=== PATIENT | female | born 1980 | race African-American/Black ===

== ENCOUNTER 2018-03-24 15:43 | Emergency (ER) | payer OTHER ==
--- NOTE | 2018-03-24 15:47 | PDOC ---
Rapid Medical Evaluation Time Seen by Provider: 03/24/18 15:45 Medical Evaluation: Allergies Allergy/AdvReac Type Severity Reaction Status Date / Time No Known Allergies Allergy Verified 03/24/18 15:44 03/24/18 15:45 I have performed a brief in-person evaluation of the patient. The patient presents with a chief complaint of : sorethroat x 4 days on and off. Reports she lost her voice, and has pain with swallowing Took claritin multisymptoms this am Pertinent physical exam findings. HEENT: right tonsils erythematous, no exudate, I have ordered the following throat culture This patient will proceed to the ED for further evaluation. 03/24/18 15:51
[2018-03-24 15:48] VITALS: BP 132/83; PULSE 80; TEMP 99; BMI 60.5
--- NOTE | 2018-03-24 16:19 | PDOC ---
History of Present Illness - General Chief Complaint: Pain Stated Complaint: THROAT PAIN Time Seen by Provider: 03/24/18 15:45 - History of Present Illness Initial Comments: 38-year-old healthy female with no comorbidities presents for evaluation of sore throat and loss of voice 4 days with subjective fever at home. No other associated symptoms. No ALLERGIES to medication. 03/24/18 16:16 Past History - Past Medical History Allergies/Adverse Reactions: Allergies Allergy/AdvReac Type Severity Reaction Status Date / Time No Known Allergies Allergy Verified 03/24/18 15:44 Home Medications: Ambulatory Orders NK [No Known Home Medication] 03/24/18 - Suicide/Smoking/Psychosocial Hx Smoking History: Never smoked Hx Alcohol Use: No Drug/Substance Use Hx: No Review of Systems - Review of Systems Comments:: GENERAL/CONSTITUTIONAL: + fever no chills. No weakness. No weight change. HEAD, EYES, EARS, NOSE AND THROAT: No change in vision. No ear pain or discharge. + sore throat. CARDIOVASCULAR: No chest pain or shortness of breath. RESPIRATORY: No cough, wheezing, or hemoptysis. GASTROINTESTINAL: No nausea, vomiting, diarrhea or constipation. No rectal bleeding. GENITOURINARY: No dysuria, frequency, or change in urination. MUSCULOSKELETAL: No joint or muscle swelling or pain. No neck or back pain. SKIN AND BREASTS: No rash or easy bruising. NEUROLOGIC: No headache, vertigo, loss of consciousness, or loss of sensation. PSYCHIATRIC: No depression or anxiety. ENDOCRINE: No increased thirst. No abnormal weight change. HEMATOLOGIC/LYMPHATIC: No anemia, easy bleeding, or history of blood clots. ALLERGIC/IMMUNOLOGIC: No hives or skin allergy. No latex allergy. 03/24/18 16:18 *Physical Exam - Vital Signs Last Vital Signs Temp Pulse Resp BP Pulse Ox 99.0 F 80 20 132/83 100 03/24/18 15:44 03/24/18 15:44 03/24/18 15:44 03/24/18 15:44 03/24/18 15:44 - Physical Exam Comments: GENERAL: The patient is awake, alert, and fully oriented, in no acute distress. HEAD: Normal with no signs of trauma. EYES: Pupils equal, round and reactive to light, extraocular movements intact, sclera anicteric, conjunctiva clear. ENT: Ears normal, nares patent, oropharynx mildly injected without exudates. Moist mucous membranes. Her voice is hoarse NECK: Normal range of motion, supple without lymphadenopathy, JVD, or masses. LUNGS: Breath sounds equal, clear to auscultation bilaterally. No wheezes, and no crackles. HEART: Regular rate and rhythm, normal S1 and S2 without murmur, rub or gallop. ABDOMEN: Soft, nontender, normoactive bowel sounds. No guarding, no rebound. No masses. EXTREMITIES: Normal range of motion, no edema. No clubbing or cyanosis. No cords, erythema, or tenderness. NEUROLOGICAL: Cranial nerves II through XII grossly intact. Normal speech, normal gait. PSYCH: Normal mood, normal affect. SKIN: Warm, Dry, normal turgor, no rashes or lesions noted. 03/24/18 16:18 *DC/Admit/Observation/Transfer Diagnosis at time of Disposition: Viral pharyngitis - Discharge Dispostion Disposition: HOME Condition at time of disposition: Stable Decision to Admit order: No - Referrals - Patient Instructions Printed Discharge Instructions: Viral Pharyngitis, DI for Viral Pharyngitis Additional Instructions: A rapid strep was negative. You have a viral pharyngitis. You should do warm saltwater gargles 3-5 times a day drink plenty of fluids and use loss and just to keep her throat moist. Treat fever with Tylenol and Motrin as directed. Return to the emergency room if symptoms worsen or go unresolved. Should follow- up with your primary care doctor within the next 1-2 days. - Post Discharge Activity
== END 2018-03-24 16:51 | disposition home or self-care (01) ==
LOC: JERFT 15:43
DX: J02.8 Acute pharyngitis due to other specified organisms (principal); B97.89 Other viral agents as the cause of diseases classified elsewhere
CPT/HCPCS: 87070; 87430; 99281-25